=== PATIENT | female | born 1950 | race Caucasian/White ===

== ENCOUNTER 2019-12-19 13:10 | Emergency (ER) | payer BC, MEDICAID ==
[~2019-12-19] VITALS: Ht 160 cm; Wt 63.5 kg
--- NOTE | 2019-12-19 13:10 | NUR ---
Patient BIBA ALS accompanied by [place], triaged by RN. Waiting for an available bed.
[2019-12-19 13:15] VITALS: BP 169/93
--- NOTE | 2019-12-19 13:23 | NUR ---
Patient transferred to bed 5. RN evaluating patient at bedside.
[2019-12-19] MEDS ORDERED: BENA40TA PO (13:43)
[2019-12-19] MEDS ORDERED: ESCI20TA PO (13:43)
[2019-12-19] MEDS ORDERED: QUET25TA PO (13:43)
[2019-12-19] MEDS ORDERED: PHEN100C4 PO (13:43)
[2019-12-19] MEDS ORDERED: ATI.5 PO (13:43)
[2019-12-19] MEDS ORDERED: CARB200T1 PO (13:43)
[2019-12-19] MEDS ORDERED: AMLO5TAB PO (13:43)
[2019-12-19] MEDS ORDERED: DOCU-299 PO (13:43)
[2019-12-19] MEDS ORDERED: ATOR20TA PO (13:43)
[2019-12-19] MEDS ORDERED: LEVE1000 PO (13:43)
--- NOTE | 2019-12-19 14:24 | NUR ---
69 Y/F JOHNNYA FROM [facility] S/P SEIZURE. PT A & O X 0. PT NODDING HEAD TO ALL QUESTIONS ASKED, UNABLE TO RECALL SEIZURE, LENGTH OF SEIZURE, UNABLE TO STATE WHETHER SHE HIT HER HEAD. MERARI IN TACT. RR EVEN AND UNLABORED. HX- DEMENTIA, HTN, SCHIZOPHRENIA, BIPOLAR
--- NOTE | 2019-12-19 14:39 | NUR ---
Dr. Grace is evaluating the patient at bedside.
--- NOTE | 2019-12-19 15:03 | NUR ---
PT ANSWERING QUESTIONS APPROPRIATELY, PT SITTING UPRIGHT IN BED, ALERT TO NAME, PLACE, TIME, DATE. NO CONCERNS AT THIS TIME. Addendum: 12/19/19 at 1617 by [email or web address] PT UNKNOWN YEAR
--- NOTE | 2019-12-19 15:20 | NUR ---
ETA IS 1830 [facility] TRANSPORT
--- NOTE | 2019-12-19 15:53 | NUR ---
PT UPRIGHT IN BED EATING
--- NOTE | 2019-12-19 16:28 | NUR ---
PT NOW ABLE TO RECALL WHY SHE PRESENTED TO ED.
--- NOTE | 2019-12-19 18:07 | NUR ---
CALLED BLANCO FROM [facility], INFORMED HER OF EMS HAND CLIPPER ESTIMATED ARRIVAL OF 1830.
--- NOTE | 2019-12-19 18:58 | NUR ---
Patient discharged with v/s stable. Written and verbal after care instructions given and explained. Patient verbalized understanding. [facility]. All questions addressed prior to discharge. Advised to follow up with PMD. DISCHARGE PAPERWORK SIGNED BY LINDY OLSON AND LINDY BALLESTEROS
[2019-12-19 19:04] VITALS: BP 160/82
== END 2019-12-19 18:58 ==
LOC: MED 13:10
DX: R56.9 Unspecified convulsions (principal); F03.90 Unspecified dementia, unspecified severity, without behavioral disturbance, psychotic disturbance, mood disturbance, and anxiety; I10 Essential (primary) hypertension; F32.9 Major depressive disorder, single episode, unspecified; F20.9 Schizophrenia, unspecified; Z79.899 Other long term (current) drug therapy
CPT/HCPCS: 99281